=== PATIENT | male | born 1945 | race Two or more races ===

== ENCOUNTER 2023-11-16 08:26 | Outpatient (CLI) | payer OTHER | END 2023-11-16 08:34 | disposition home or self-care (01) | LOC: RAD 08:26 | PROVIDERS: ATTEND Orthopaedic Surgery | DX: M25.561 Pain in right knee (principal); M25.562 Pain in left knee ==

== ENCOUNTER 2023-11-18 08:56 | Outpatient (CLI) | payer OTHER | END 2023-11-18 08:57 | disposition home or self-care (01) | LOC: NUCLEAR 08:56 | PROVIDERS: ATTEND Orthopaedic Surgery | DX: M81.0 Age-related osteoporosis without current pathological fracture (principal) ==